=== PATIENT | female | born 1995 ===

== ENCOUNTER 2018-08-12 12:49 | Emergency (ER) | payer OTHER ==
--- NOTE | 2018-08-12 13:27 | UC ---
Complaint Female HPI - HPI Summary HPI Summary: 22 y/o female presents to the urgent care c/o mild pelvic pain and discomfort s/ p IUD Minera placement. IUD was placed on 03/19/2018. The ADMINISTRATIVE AIDE didn't cut the strings well. She has experienced some discomfort at times specially w/ sexual intercourse and urination for the past 3 months. However for the past week mild dull intermittent pelvic pain developed. Pain is 4/10. Today she feels a throbbing pain on urination and frequency on urination. Pt denies fever, lower back pain, abdominal pain, N/V/D. LMP: 08/01/2018 w/ regular menstrual cycles. She has not taking anything to alleviate symptoms. - History Of Current Complaint Chief Complaint: UCAbdominalPain Stated Complaint: PERSONAL Time Seen by Provider: 08/12/18 13:13 Hx Obtained From: Patient Hx Last Menstrual Period: 07/20/18 Onset/Duration: Gradual Onset, Lasting Weeks - 3 months, Still Present, Worse Since - last week Timing: Intermittent, Lasting Seconds Severity Initially: Mild Severity Currently: Mild Pain Intensity: 4 Pain Scale Used: 0-10 Numeric Character: Dull - discomfort of the IUD strings Aggravating Factor(s): Urination Alleviating Factor(s): Nothing Associated Signs And Symptoms: Positive: Negative. Negative: Fever, Back Pain, Vaginal Bleeding/Discharge, Vaginal Discharge, Nausea, Vomiting(# Of Episodes =) , Genital Swelling, Genital Blisters, Retained Foregin Body (Specify) - Risk Factors Ectopic Risk Factor: IUD Use Ovarian Torsion Risk Factor: Negative - Allergies/Home Medications Allergies/Adverse Reactions: Allergies Allergy/AdvReac Type Severity Reaction Status Date / Time Penicillins Allergy Severe Hives Verified 08/12/18 13:26 Home Medications: Home Medications Fexofenadine (NF) [Martha 180 (NF)] 180 mg PO DAILY 08/12/18 [History Confirmed 08/12/18] Levonorgestrel (Iud) [Mirena IUD] 1 unit 08/12/18 [History] PMH/Surg Hx/FS Hx/Imm Hx Previously Healthy: Yes Respiratory History: Asthma - Surgical History Surgical History: None - Family History Known Family History: Positive: Cardiac Disease, Hypertension, Diabetes - Social History Occupation: Student Lives: With Family Alcohol Use: None Substance Use Type: None Smoking Status (MU): Never Smoked Tobacco Review of Systems Constitutional: Negative Skin: Negative Eyes: Negative ENT: Negative Respiratory: Negative Cardiovascular: Negative Gastrointestinal: Negative Genitourinary: Frequency, Other - pelvi pain and discomfort s/p Mirena IUD Motor: Negative Neurovascular: Negative Musculoskeletal: Negative Neurological: Negative Psychological: Negative Is Patient Immunocompromised?: No All Other Systems Reviewed And Are Negative: Yes Physical Exam - Summary Physical Exam Summary: Vital signs: reviewed General: well developed, well nourished female adolescent sitting in the examining table w/o any acute distress. Head: Normocephalic, no lesions. Eyes: PERRLA, EOM's full, conjunctiva clear, fundi grossly normal. Ears: EAC's clear, TM's normal. Nose: Mucosa normal, no obstruction. Throat: Clear, no exudates, no lesions. Neck: Supple, no masses, no thyromegaly, no bruits. Chest: Lungs clear, no rales, no rhonchi, no wheezes. Heart: RR, no murmurs, no rubs, no gallops. Abdomen: Soft, no tenderness, no masses, BS normal. Pelvic: I was assisted by nurse Evita. External genitalia within normal limits. There is no lesions there is no masses noted. Speculum exam: The vaginal ramirez are within normal limits w/ white clear vaginal discharge, no the lesions or rashes. The cervix is w/ mild erythema and the IUD is half way out in a transverse position, and the string is about 10cm in size. I tried to pull from string to remove IUD w/o any success. I trimmed the strings a little since they were coming out of vagina, There is no CMT's, and no adnexal masses. Rectal: No lesions, no hemorrhoids, Back: Normal curvature, no tenderness. Extremities: FROM, no deformities, no edema, no erythema. Neuro: Physiological, no localizing findings. Skin: Normal, no rashes, no lesions noted. Triage Information Reviewed: Yes Vital Signs: Initial Vital Signs Temp 98 F 08/12/18 13:22 Pulse 78 08/12/18 13:22 Resp 17 08/12/18 13:22 BP 118/73 08/12/18 13:22 Pulse Ox 99 08/12/18 13:22 Complaint Female Dx - Course Course Of Treatment: 22 y/o female presents to the urgent care c/o mild pelvic pain and discomfort s/p IUD Minera placement. IUD was placed on 03/19/2018. The ADMINISTRATIVE AIDE didn't cut the strings well. She has experienced some discomfort at times specially w/ sexual intercourse and urination for the past 3 months. However for the past week mild dull intermittent pelvic pain develop. Pain is 4/10. Today she feels a throbbing pain on urination and frequency on urination. Pt denies fever, lower back pain, abdominal pain, N/V/D. LMP: 08/01/2018 w/ regular menstrual cycles. Hx obtained. Pelvic exam:I was assisted by nurse Amylee. External genitalia within normal limits. There is no lesions there is no masses noted. Speculum exam: The vaginal ramirez are within normal limits w/ white clear vaginal discharge, no lesions or rashes. The cervix is w/ mild erythema and the IUD is half way out in a transversed position, and the string is about 10cm in size. I tried to pull from string to remove IUD w/o any success. I trimmed the strings a little since they were coming out of vagina on examination. Pt was explained of findings and the importance to f/u w/ ADMINISTRATIVE AIDE Dr Selby tomorrow for IUD removal. UA oredered:+leukoesteraces, Urine : negative. Pt Rx Ibuprofen PO for pain as directed below. D/C instructions explained. Pt understood and agreed w/ plan of care. - Differential Dx/Diagnosis Differential Diagnosis/HQI/PQRI: Cervicitis, Pelvic Inflammatory Disease, , Sexually Transmitted Disease, Urinary Tract Infection Provider Diagnoses: 1- Pelvic pain. 2- Misplaced IUD Discharge - Sign-Out/Discharge Documenting (check all that apply): Patient Departure - D/c home All imaging exams completed and their final reports reviewed: No Studies - Discharge Plan Condition: Stable Disposition: HOME Prescriptions: Ibuprofen TAB* [Motrin TAB* 600 MG] 600 mg PO Q6H PRN #30 tab PRN Reason: pelvic pain Patient Education Materials: Pelvic Pain in Women (ED) Forms: *School Release Referrals: [facility] - Matt POMPA [Primary Care Provider] - 1 Day Nathalie Selby MD [Medical Doctor] - 1 Day Additional Instructions: 1- Your Mirena IUD is half way coming out please f/u with ADMINISTRATIVE AIDE Dr Selby or your ADMINISTRATIVE AIDE tomorrow for IUD removal and further management.. 2- Please take Ibuprofen PO q6-8hrs prn after meals as directed. 3- If you develop severe pelvic pain w/ vaginal bleeding tonight please go immediately to the ER for further management. - Billing Disposition and Condition Condition: STABLE Disposition: Home
--- NOTE | 2018-08-13 14:44 | UC ---
- Progress Note Progress Note: NO IMAGING Discharge - Sign-Out/Discharge Documenting (check all that apply): Post-Discharge Follow Up All imaging exams completed and their final reports reviewed: No Studies - Discharge Plan Condition: Stable Disposition: HOME Prescriptions: Ibuprofen TAB* [Motrin TAB* 600 MG] 600 mg PO Q6H PRN #30 tab PRN Reason: pelvic pain Patient Education Materials: Pelvic Pain in Women (ED) Forms: *School Release Referrals: [facility] - Matt POMPA [Primary Care Provider] - 1 Day Nathalie Selby MD [Medical Doctor] - 1 Day Additional Instructions: 1- Your Mirena IUD is half way coming out please f/u with PROPERTY PORTFOLIO OFFICER Dr Selby or your PROPERTY PORTFOLIO OFFICER tomorrow for IUD removal and further management.. 2- Please take Ibuprofen PO q6-8hrs prn after meals as directed. 3- If you develop severe pelvic pain w/ vaginal bleeding tonight please go immediately to the ER for further management. - Billing Disposition and Condition Condition: STABLE Disposition: Home
== END 2018-08-12 14:35 | disposition home or self-care (01) ==
LOC: UCEAST 12:49
DX: R10.2 Pelvic and perineal pain (principal); T83.32XA Displacement of intrauterine contraceptive device, initial encounter; Z32.02 Encounter for pregnancy test, result negative; Z88.0 Allergy status to penicillin
CPT/HCPCS: 81003; 84702; 87086; 99202; G0463

== ENCOUNTER 2019-01-25 16:54 | Emergency (ER) | payer OTHER ==
[2019-01-25 18:14] LABS: ABS Basophils 0 10^3/ul (0-0.2); ABS Eosinophils 0.1 10^3/ul (0-0.6); ABS Lymphocytes 1.6 10^3/ul (1.0-4.8); ABS Monocytes 0.5 10^3/ul (0-0.8); ABS Neutrophils 3.7 10^3/ul (1.5-7.7); ABS Nucleated RBC 0 10^3/ul; Eosinophil % 1.1 %; Hematocrit 38 % (35-47); Lymphocyte % 27.5 %; Mean Corpuscular HGB Conc 35 g/dl (31-36); Mean Corpuscular Hemoglobin 34 pg (27-31); Mean Corpuscular Volume 99 fL (80-97); Mean Platelet Volume 6.7 fL (7.4-10.4); Nucleated Red Blood Cells % 0.1; Platelet Count 320 10^3/ul (150-450); Red Blood Count 3.78 10^6/ul (4.00-5.40); Red Cell Distribution Width 12 % (10.5-15); White Blood Count 5.9 10^3/ul (3.5-10.8)
[2019-01-25 18:19] LABS: Urine Appearance Cloudy; Urine Bilirubin Negative (Negative); Urine Blood Negative (Negative); Urine Color Yellow; Urine Glucose Negative (Negative); Urine Ketones Negative (Negative); Urine Nitrite Negative (Negative); Urine Protein Negative (Negative); Urine Specific Gravity 1.023 (1.010-1.030); Urine Urobilinogen Negative (Negative)
[2019-01-25 18:31] LABS: ALT 11 U/L (7-52); AST 17 U/L (13-39); Albumin 4.5 g/dL (3.2-5.2); Albumin/Globulin Ratio 1.7 (1-3); Alkaline Phosphatase 47 U/L (34-104); Anion Gap 5 mmol/L (2-11); BUN/Creatinine Ratio 17.6 (8-20); Blood Urea Nitrogen 12 mg/dL (6-24); C Reactive Protein 1.05 mg/L (<8.01); CO2 Carbon Dioxide 27 mmol/L (22-32); Calcium 9.1 mg/dL (8.6-10.3); Chloride 105 mmol/L (101-111); EGFR African American 130.9 (>60); EGFR Non-African American 108.2 (>60); Globulin 2.7 g/dL (2-4); Glucose 92 mg/dL (70-100); Potassium 4.2 mmol/L (3.5-5.0); Sodium 137 mmol/L (135-145); Total Protein 7.2 g/dL (6.4-8.9)
[2019-01-25 18:38] LABS: HCG Pregnancy < 0.60 mIU/mL
--- NOTE | 2019-01-25 20:56 | ED ---
GI/ HPI - HPI Summary HPI Summary: Patient complains of pelvic pain since having IUD placed 3 days ago [facility]. Pain described as intermittent, worst 7/10, 3/10 today. Patient also states she had intercourse 30 hours after IUD placement. Denies fever, cough, sore throat, CP, N/V/D, abdominal pain, change in urine, change in BM, vaginal discharge or bleeding. Patient states she has a history of poor placement of prior IUD and is very anxious that current pain is related to misplacement of IUD again. Medical history is asthma. Abdominal surgical history is none. - History of Current Complaint Chief Complaint: EDAbdPain Time Seen by Provider: 01/25/19 17:46 Stated Complaint: "FEVER AND ABD/VAGINAL PAIN" PER PT Hx Obtained From: Patient Hx Last Menstrual Period: 07/20/18 Onset/Duration: Started Days Ago Timing: Intermittent Severity: Moderate Current Severity: Mild Pain Intensity: 7 Location of Pain: Groin Pain Characteristics: Cramping Associated Signs and Symptoms: Positive: Negative. Negative: Dyspureunia Additional Signs & Symptoms: Positive: IUD - Allergy/Home Medications Allergies/Adverse Reactions: Allergies Allergy/AdvReac Type Severity Reaction Status Date / Time Penicillins Allergy Severe Hives Verified 01/25/19 17:00 Home Medications: Home Medications BuPROPion XL* [Bupropion XL*] 300 mg PO DAILY 01/25/19 [History Confirmed ] Escitalopram * [Lexapro 5 mg (NF)] 5 mg PO DAILY 01/25/19 [History Confirmed 09/05] PMH/Surg Hx/FS Hx/Imm Hx Endocrine/Hematology History: Denies: Hx Anticoagulant Therapy Cardiovascular History: Denies: Hx Pacemaker/ICD History: Denies: Hx Dialysis Musculoskeletal History: Denies: Hx Gout Sensory History: Denies: Hx Eye Prosthesis Opthamlomology History: Denies: Hx Legally Blind EENT History: Denies: Hx Deafness Neurological History: Denies: Hx Dementia Psychiatric History: Denies: Hx Autism Infectious Disease History: No Infectious Disease History: Denies: Traveled Outside the [place] in Last 30 Days - Family History Known Family History: Positive: Cardiac Disease, Hypertension, Diabetes - Social History Alcohol Use: None Substance Use Type: Reports: None Smoking Status (MU): Never Smoked Tobacco Review of Systems Constitutional: Negative Eyes: Negative ENT: Negative Cardiovascular: Negative Respiratory: Negative Gastrointestinal: Negative Positive: other Musculoskeletal: Negative Skin: Negative Neurological: Negative Psychological: Normal All Other Systems Reviewed And Are Negative: Yes Physical Exam - Summary Physical Exam Summary: Abdomen soft nontender. Triage Information Reviewed: Yes Vital Signs On Initial Exam: Initial Vitals Temp Pulse Resp BP Pulse Ox 98.4 F 79 16 120/91 98 01/25/19 16:55 01/25/19 16:55 01/25/19 16:55 01/25/19 16:55 01/25/19 16:55 Vital Signs Reviewed: Yes Appearance: Positive: Well-Appearing Skin: Positive: Warm Head/Face: Positive: Normal Head/Face Inspection Eyes: Positive: Normal Neck: Positive: Supple Respiratory/Lung Sounds: Positive: Clear to Auscultation Cardiovascular: Positive: Normal Abdomen Description: Positive: Nontender Musculoskeletal: Positive: Normal Neurological: Positive: Normal Psychiatric: Positive: Normal AVPU Assessment: Alert - Anita Coma Scale Best Eye Response: 4 - Spontaneous Best Motor Response: 6 - Obeys Commands Best Verbal Response: 5 - Oriented Coma Scale Total: 15 Diagnostics - Vital Signs Vital Signs Temp Pulse Resp BP Pulse Ox 01/25/19 16:55 98.4 F 79 16 120/91 98 - Laboratory Lab Results: Lab Results 01/25/19 01/25/19 01/25/19 Range/Units 18:06 18:06 18:06 WBC 5.9 (3.5-10.8) 10^3/ul RBC 3.78 L (4.00-5.40) 10^6/ul Hgb 13.0 (12.0-16.0) g/dl Hct 38 (35-47) % MCV 99 H (80-97) fL MCH 34 H (27-31) pg MCHC 35 (31-36) g/dl RDW 12 (10.5-15) % Plt Count 320 (150-450) 10^3/ul MPV 6.7 L (7.4-10.4) fL Neut % (Auto) 62.1 % Lymph % (Auto) 27.5 % [place] % (Auto) 8.6 % Eos % (Auto) 1.1 % Baso % (Auto) 0.7 % Absolute Neuts (auto) 3.7 (1.5-7.7) 10^3/ul Absolute Lymphs (auto) 1.6 (1.0-4.8) 10^3/ul Absolute Monos (auto) 0.5 (0-0.8) 10^3/ul Absolute Eos (auto) 0.1 (0-0.6) 10^3/ul Absolute Basos (auto) 0 (0-0.2) 10^3/ul Absolute Nucleated RBC 0 10^3/ul Nucleated RBC % 0.1 Sodium 137 (135-145) mmol/L Potassium 4.2 (3.5-5.0) mmol/L Chloride 105 (101-111) mmol/L Carbon Dioxide 27 (22-32) mmol/L Anion Gap 5 (2-11) mmol/L BUN 12 (6-24) mg/dL Creatinine 0.68 (0.51-0.95) mg/dL Est GFR ( Amer) 130.9 (>60) Est GFR (Non-Af Amer) 108.2 (>60) BUN/Creatinine Ratio 17.6 (8-20) Glucose 92 (70-100) mg/dL Lactic Acid 0.6 (0.5-2.0) mmol/L Calcium 9.1 (8.6-10.3) mg/dL Total Bilirubin 0.50 (0.2-1.0) mg/dL AST 17 (13-39) U/L ALT 11 (7-52) U/L Alkaline Phosphatase 47 (34-104) U/L C-Reactive Protein 1.05 (<8.01) mg/L Total Protein 7.2 (6.4-8.9) g/dL Albumin 4.5 (3.2-5.2) g/dL Globulin 2.7 (2-4) g/dL Albumin/Globulin Ratio 1.7 (1-3) Lipase 21 (11.0-82.0) U/L Beta HCG, Quant < 0.60 mIU/mL Urine Color Urine Appearance Urine pH (5-9) Ur Specific [place] (1.010-1.030) Urine Protein (Negative) Urine Ketones (Negative) Urine Blood (Negative) Urine Nitrate (Negative) Urine Bilirubin (Negative) Urine Urobilinogen (Negative) Ur Leukocyte Esterase (Negative) Urine Glucose (Negative) 01/25/19 Range/Units 18:12 WBC (3.5-10.8) 10^3/ul RBC (4.00-5.40) 10^6/ul Hgb (12.0-16.0) g/dl Hct (35-47) % MCV (80-97) fL MCH (27-31) pg MCHC (31-36) g/dl RDW (10.5-15) % Plt Count (150-450) 10^3/ul MPV (7.4-10.4) fL Neut % (Auto) % Lymph % (Auto) % [place] % (Auto) % Eos % (Auto) % Baso % (Auto) % Absolute Neuts (auto) (1.5-7.7) 10^3/ul Absolute Lymphs (auto) (1.0-4.8) 10^3/ul Absolute Monos (auto) (0-0.8) 10^3/ul Absolute Eos (auto) (0-0.6) 10^3/ul Absolute Basos (auto) (0-0.2) 10^3/ul Absolute Nucleated RBC 10^3/ul Nucleated RBC % Sodium (135-145) mmol/L Potassium (3.5-5.0) mmol/L Chloride (101-111) mmol/L Carbon Dioxide (22-32) mmol/L Anion Gap (2-11) mmol/L BUN (6-24) mg/dL Creatinine (0.51-0.95) mg/dL Est GFR ( Amer) (>60) Est GFR (Non-Af Amer) (>60) BUN/Creatinine Ratio (8-20) Glucose (70-100) mg/dL Lactic Acid (0.5-2.0) mmol/L Calcium (8.6-10.3) mg/dL Total Bilirubin (0.2-1.0) mg/dL AST (13-39) U/L ALT (7-52) U/L Alkaline Phosphatase (34-104) U/L C-Reactive Protein (<8.01) mg/L Total Protein (6.4-8.9) g/dL Albumin (3.2-5.2) g/dL Globulin (2-4) g/dL Albumin/Globulin Ratio (1-3) Lipase (11.0-82.0) U/L Beta HCG, Quant mIU/mL Urine Color Yellow Urine Appearance Cloudy Urine pH 7.0 (5-9) Ur Specific [place] 1.023 (1.010-1.030) Urine Protein Negative (Negative) Urine Ketones Negative (Negative) Urine Blood Negative (Negative) Urine Nitrate Negative (Negative) Urine Bilirubin Negative (Negative) Urine Urobilinogen Negative (Negative) Ur Leukocyte Esterase Negative (Negative) Urine Glucose Negative (Negative) Result Diagrams: 01/25/19 18:06 01/25/19 18:06 Lab Statement: Any lab studies that have been ordered have been reviewed, and results considered in the medical decision making process. GIGU Course/Dx - Course Course Of Treatment: Patient complains of pelvic pain since having IUD placed 3 days ago [facility]. Pain described as intermittent, worst 7/10, 3/10 today. Patient also states she had intercourse 30 hours after IUD placement. Denies fever, cough, sore throat, CP, N/V/D, abdominal pain, change in urine, change in BM, vaginal discharge or bleeding. Patient states she has a history of poor placement of prior IUD and is very anxious that current pain is related to misplacement of IUD again. Medical history is asthma. Abdominal surgical history is none. Physical exam:Abdomen soft nontender. Vital signs within normal limits. Labs unremarkable. Ultrasound of pelvis indicates well-placed IUD. Advised patient follow up with FRONT OFFICE MANAGER at [facility]. Patient much relieved, understands and approves of plan. - Diagnoses Provider Diagnoses: Vaginal pain Discharge - Sign-Out/Discharge Documenting (check all that apply): Patient Departure Patient Received Moderate/Deep Sedation with Procedure: No - Discharge Plan Condition: Stable Disposition: HOME Patient Education Materials: Pelvic Pain in Women (ED) Referrals: No Primary Care Phys,NOPCP [Primary Care Provider] - Rigo Resendiz MD [Medical Doctor] - Additional Instructions: No sex or penetration of vagina until follow-up with FRONT OFFICE MANAGER Dr Resendiz. Return to the ED for any new or worsening symptoms. - Billing Disposition and Condition Condition: STABLE Disposition: Home
[2019-01-25 21:21] VITALS: BP 118/69
== END 2019-01-25 21:24 | disposition home or self-care (01) ==
LOC: ED 16:54
DX: R10.2 Pelvic and perineal pain (principal); Z97.5 Presence of (intrauterine) contraceptive device; Z88.0 Allergy status to penicillin; J45.909 Unspecified asthma, uncomplicated
CPT/HCPCS: 36415; 76856; 80053; 81003; 83605; 83690; 84702; 85025; 86140; 99282